=== PATIENT | male | born 1965 | race Two or more races ===

== ENCOUNTER 2018-12-01 21:54 | Emergency (ER) | payer MEDICAID, OTHER ==
[~2018-12-01] VITALS: Ht 175.3 cm; Wt 83.9 kg
[2018-12-01 22:02] VITALS: BP 114/60
== END 2018-12-01 22:32 | disposition left against medical advice (07) ==
LOC: EDBD 21:56 → ER 21:56
DX: S00.81XA Abrasion of other part of head, initial encounter (principal); W01.0XXA Fall on same level from slipping, tripping and stumbling without subsequent striking against object, initial encounter; Y93.89 Activity, other specified; Y92.89 Other specified places as the place of occurrence of the external cause; Y99.8 Other external cause status

== ENCOUNTER 2019-01-11 00:15 | Emergency (ER) | payer MEDICAID ==
[~2019-01-11] VITALS: Ht 172.7 cm; Wt 63.5 kg
--- NOTE | 2019-01-11 00:45 | NUR ---
PT BIBFAMILY COMPLAINING OF R SHOULDER PAIN FOLLOWING FALL AROUND 2100 LAST NIGHT. PT AXO4. RESPIRATIONS EVEN AND UNLABORED.
--- NOTE | 2019-01-11 01:36 | NUR ---
XRAY AT BEDSIDE.
[2019-01-11] MEDS ORDERED: HYDROCODONE/APAP 5/325MG 1 EACH TABLET ONE (02:14)
[2019-01-11] MEDS ORDERED: HYDROCODONE/APAP 5/325MG 1 EACH TABLET PO ONE (02:30)
--- NOTE | 2019-01-11 02:40 | NUR ---
Patient discharged to home in stable condition. Written and verbal after care instructions given. Patient verbalizes understanding of instruction.
[2019-01-11 02:44] VITALS: BP 125/77
== END 2019-01-11 02:46 | disposition home or self-care (01) ==
LOC: ER 00:18
DX: S42.214A Unspecified nondisplaced fracture of surgical neck of right humerus, initial encounter for closed fracture (principal); G40.909 Epilepsy, unspecified, not intractable, without status epilepticus; F10.10 Alcohol abuse, uncomplicated; F17.200 Nicotine dependence, unspecified, uncomplicated; Y90.9 Presence of alcohol in blood, level not specified; Z98.890 Other specified postprocedural states; Z88.5 Allergy status to narcotic agent; W01.0XXA Fall on same level from slipping, tripping and stumbling without subsequent striking against object, initial encounter; Y93.89 Activity, other specified; Y92.89 Other specified places as the place of occurrence of the external cause; Y99.8 Other external cause status
CPT/HCPCS: 73030-TC

== ENCOUNTER 2024-02-06 08:59 | Inpatient (IN) | payer MEDICARE, OTHER ==
[~2024-02-06] VITALS: Ht 172.7 cm; Wt 62.6 kg
[2024-02-06] MEDS ORDERED: OXYMETAZOLINE HCL NASAL SPRAY 30 ML BOTTLE NS ONE (09:56)
[2024-02-06] MEDS ORDERED: dexaMETHasone SOD PHOSPHATE 2 ML ONE (09:56)
[2024-02-06] MEDS ORDERED: LIDOCAINE 2%-EPI 1:100,000 30 ML VIAL ONE (09:56)
[2024-02-06] MEDS ORDERED: VANCOMYCIN 1 GM VIAL ONE (09:57)
[2024-02-06 14:00] VITALS: BP 114/69; TEMP 97.9; O2SAT 94
[2024-02-06] MEDS ORDERED: MAGNESIUM HYDROXIDE 30 ML UDC PO PRN (15:00)
[2024-02-06] MEDS ORDERED: MAG HYDROX/AL HYDROX/SIMETH 30 ML UDC PO PRN (15:00)
[2024-02-06] MEDS ORDERED: ONDANSETRON HCL/PF 4 MG/2 ML VIAL IV PRN ×2 (15:00)
[2024-02-06] MEDS ORDERED: ONDANSETRON HCL/PF 4 MG/2 ML VIAL IVP PRN (15:00)
[2024-02-06] MEDS ORDERED: ACETAMINOPHEN 325 MG TABLET PO PRN ×2 (15:00)
[2024-02-06] MEDS: IV NS 0.9% 1,000 ML IV PRN (15:08)
[2024-02-06] MEDS: HYDROCODONE/APAP 5/325MG TABLET PO PRN (15:29)
[2024-02-06] MEDS ORDERED: FURO-145 PO (15:39)
[2024-02-06] MEDS ORDERED: CARV6.25 PO (15:39)
[2024-02-06] MEDS ORDERED: VITA1TAB20 PO (15:39)
[2024-02-06] MEDS ORDERED: LEVE500T20 PO (15:39)
[2024-02-06] MEDS ORDERED: CHOL500052 PO (15:39)
[2024-02-06 16:00] VITALS: BP 110/70; TEMP 97.9; O2SAT 97
[2024-02-06] MEDS ORDERED: Z GUARD REMEDY 4 OZ OINT TP PRN (17:00)
[2024-02-06 20:00] VITALS: BP 108/69; TEMP 98.4; O2SAT 96
[2024-02-06] MEDS: TEMAZEPAM 15 MG CAPSULE PO PRN (21:14)
[2024-02-06] MEDS: VANCOMYCIN 1 GM in IV D5W 250ml IV SCH (22:01)
[2024-02-07 06:56] LABS: BASOPHILS % (AUTO) 0.1 % (0.0-2.0); HEMATOCRIT 39 % (39-51); HEMOGLOBIN 13.6 g/dL (13.5-17.5); LYMPHOCYTES # (AUTO) 0.6 K/uL (0.8-4.8); LYMPHOCYTES % (AUTO) 9.2 % (20.0-44.0); MEAN CORPUSCULAR HEMOGLOBIN 34 PG (26.0-33.0); MEAN CORPUSCULAR HGB CONC 35 g/dl (31.0-36.0); MEAN CORPUSCULAR VOLUME 98 fL (80-96); MONOCYTES # (AUTO) 0.3 K/uL (0.1-1.30); MONOCYTES % (AUTO) 4.7 % (2.0-12.0); NEUTROPHILS # (AUTO) 5.7 K/uL (1.8-8.9); PLATELET COUNT (AUTO) 60 K/uL (150-450); RED CELL DISTRIBUTION WIDTH 14.8 % (11.5-15.0); WHITE BLOOD COUNT (AUTO) 6.6 K/uL (4.3-11.0)
[2024-02-07 07:17] LABS: CALCIUM, SERUM 8.3 mg/dL (8.5-10.1); CREATININE 0.7 mg/dL (0.6-1.3); MAGNESIUM 2.1 mg/dL (1.8-2.4); PHOSPHORUS 3.8 mg/dL (2.5-4.9); POTASSIUM 4.2 mmol/L (3.5-5.1)
[2024-02-07 07:30] VITALS: BP 98/62; TEMP 97.9; O2SAT 94
[2024-02-07] MEDS: PANTOPRAZOLE 40 MG TABLET.DR PO SCH (07:45)
[2024-02-07 08:49] LABS: BASOPHILS % (MANUAL) 0 % (0.0-2.0); EOSINOPHILS % (MANUAL) 0 % (0-4); LYMPHOCYTES % (MANUAL) 12 % (16-48); MONOCYTES % (MANUAL) 5 % (0-11.0); NEUTROPHILS % (MANUAL) 83 (42-76); PLATELET ESTIMATE DECREASED
[2024-02-07] MEDS: LEVETIRACETAM (250 MG) 250 MG TABLET PO SCH (09:01)
[2024-02-07] MEDS: FUROSEMIDE 20 MG TABLET PO SCH (09:01)
[2024-02-07 09:03] VITALS: BP 100/62
[2024-02-07] MEDS: CARVEDILOL 6.25 MG TABLET PO SCH (09:03)
[2024-02-08] MEDS ORDERED: VITAMIN B COMP W-C 1 TAB TABLET PO SCH (09:00)
[2024-02-13] MEDS ORDERED: ERGOCALCIFEROL (VITAMIN D 2) 50,000 UNIT CAPSULE PO SCH (09:00)
== END 2024-02-07 13:26 | disposition home or self-care (01) | DRG 517 ==
LOC: DS 08:59 → MED 14:15
PROVIDERS: ADMIT Nurse Practitioner Acute Care; ATTEND Nurse Practitioner Acute Care
PROC: 0NSV04Z Reposition Left Mandible with Internal Fixation Device, Open Approach (ICD-10-PCS; principal; 2024-02-06)
PROC: 0NSR04Z Reposition Maxilla with Internal Fixation Device, Open Approach (ICD-10-PCS; 2024-02-06)
PROC: 0NBR0ZZ Excision of Maxilla, Open Approach (ICD-10-PCS; 2024-02-06)
PROC: 0NUR07Z Supplement Maxilla with Autologous Tissue Substitute, Open Approach (ICD-10-PCS; 2024-02-06)
PROC: 0WC40ZZ Extirpation of Matter from Upper Jaw, Open Approach (ICD-10-PCS; 2024-02-06)
PROC: 0NST04Z Reposition Right Mandible with Internal Fixation Device, Open Approach (ICD-10-PCS; 2024-02-06)
PROC: 0NBV0ZX Excision of Left Mandible, Open Approach, Diagnostic (ICD-10-PCS; 2024-02-06)
PROC: 0NBT0ZX Excision of Right Mandible, Open Approach, Diagnostic (ICD-10-PCS; 2024-02-06)
DX: S02.40DK Maxillary fracture, left side, subsequent encounter for fracture with nonunion (principal); M27.2 Inflammatory conditions of jaws; S02.40CK Maxillary fracture, right side, subsequent encounter for fracture with nonunion; S02.69XK Fracture of mandible of other specified site, subsequent encounter for fracture with nonunion; D16.4 Benign neoplasm of bones of skull and face; J32.0 Chronic maxillary sinusitis; X58.XXXD Exposure to other specified factors, subsequent encounter; M60.88 Other myositis, other site; T18.0XXA Foreign body in mouth, initial encounter; F17.200 Nicotine dependence, unspecified, uncomplicated
CPT/HCPCS: 36415; 80048-TC; 83735-TC; 84100-TC; 85025-TC; A4223; C1713; G0378; J0461; J0690; J1100; J2405; J2704; J3370; J3490; J7030; J7060

== ENCOUNTER 2024-06-02 09:21 | Outpatient (CLI) | payer MEDICARE, OTHER ==
[~2024-06-02 09:21] MED LIST: CARV6.25 PO; CHOL500052 PO; FURO-145 PO; FURO20TA4 PO; LEVE500T20 PO; RIFA550T PO; SPIR100T5 PO; THIA100T13 PO; VITA1TAB20 PO
[2024-06-02 11:11] LABS: BASOPHILS % (AUTO) 0.4 % (0.0-2.0); HEMATOCRIT 44 % (39-51); LYMPHOCYTES # (AUTO) 0.9 K/uL (0.8-4.8); LYMPHOCYTES % (AUTO) 23.4 % (20.0-44.0); MEAN CORPUSCULAR HEMOGLOBIN 34 PG (26.0-33.0); MEAN CORPUSCULAR HGB CONC 34 g/dl (31.0-36.0); MEAN CORPUSCULAR VOLUME 99 fL (80-96); MONOCYTES # (AUTO) 0.3 K/uL (0.1-1.30); MONOCYTES % (AUTO) 6.3 % (2.0-12.0); NEUTROPHILS # (AUTO) 2.8 K/uL (1.8-8.9); NEUTROPHILS % (AUTO) 68.9 % (43.0-81.0); PLATELET COUNT (AUTO) 59 K/uL (150-450); RED BLOOD CELL COUNT(AUTO) 4.43 MIL/uL (4.5-6.0); RED CELL DISTRIBUTION WIDTH 14.9 % (11.5-15.0)
[2024-06-02 11:12] LABS: CALCIUM, SERUM 9.3 mg/dL (8.5-10.1); CREATININE 0.9 mg/dL (0.6-1.3)
[2024-06-02 11:14] LABS: INR 1.18 (0.91-1.10); PARTIAL THROMBOPLASTIN TIME 28.7 SEC (24.3-34.3); PROTHROMBIN TIME 12.4 SECS (9.2-11.1)
[2024-06-02 12:48] LABS: BASOPHILS % (MANUAL) 0 % (0.0-2.0); EOSINOPHILS % (MANUAL) 2 % (0-4); LYMPHOCYTES % (MANUAL) 20 % (16-48); MONOCYTES % (MANUAL) 7 % (0-11.0); NEUTROPHILS % (MANUAL) 71 (42-76); PLATELET ESTIMATE DECREASED
== END 2024-06-02 23:59 | disposition home or self-care (01) ==
LOC: LAB 09:21
PROVIDERS: ATTEND Internal Medicine Interventional Cardiology
DX: Z01.818 Encounter for other preprocedural examination (principal); D68.9 Coagulation defect, unspecified; I70.0 Atherosclerosis of aorta; R06.00 Dyspnea, unspecified
CPT/HCPCS: 36415; 71046; 80048-TC; 85025-TC; 85730-TC

== ENCOUNTER 2024-06-11 09:15 | Inpatient (IN) | payer MEDICARE, OTHER ==
[~2024-06-11] VITALS: Ht 170.2 cm; Wt 59.9 kg
[2024-06-11] VITALS (7 sets, daily range): BP systolic 111–115; BP diastolic 67–94; TEMP 97.3–98; O2SAT 95–97
[2024-06-11] MEDS ORDERED: LIDOCAINE 2%-EPI 1:100,000 30 ML VIAL ONE (10:05)
[2024-06-11] MEDS ORDERED: VANCOMYCIN 1 GM VIAL ONE (10:06)
[2024-06-11] MEDS ORDERED: OXYMETAZOLINE HCL NASAL SPRAY 30 ML BOTTLE NS ONE (10:06)
[2024-06-11] MEDS ORDERED: dexaMETHasone SOD PHOSPHATE 2 ML ONE (10:06)
[2024-06-11] MEDS ORDERED: ACETAMINOPHEN 325 MG TABLET PO PRN (14:00)
[2024-06-11] MEDS ORDERED: ONDANSETRON HCL/PF 4 MG/2 ML VIAL IV PRN (14:00)
[2024-06-11] MEDS ORDERED: IV NS 0.9% 1,000 ML IV PRN (14:00)
[2024-06-11] MEDS ORDERED: HYDROMORPHONE 1 MG/1 ML DISP.SYRIN IV PRN (14:00)
[2024-06-11] MEDS: HYDROCODONE/APAP 5/325MG TABLET PO PRN (14:37)
[2024-06-11] MEDS ORDERED: ERGO500093 PO (15:48)
[2024-06-11] MEDS: VANCOMYCIN 1 GM in IV D5W 250ml IV SCH (22:03)
[2024-06-12 08:00] VITALS: BP 107/68; TEMP 97.9; O2SAT 92
== END 2024-06-12 18:19 | disposition home or self-care (01) | DRG 497 ==
LOC: DS 09:15 → MED 13:06
PROC: 0NPW04Z Removal of Internal Fixation Device from Facial Bone, Open Approach (ICD-10-PCS; principal; 2024-06-11)
PROC: 0NBV0ZX Excision of Left Mandible, Open Approach, Diagnostic (ICD-10-PCS; 2024-06-11)
PROC: 0NBR0ZX Excision of Maxilla, Open Approach, Diagnostic (ICD-10-PCS; 2024-06-11)
PROC: 0NBT0ZX Excision of Right Mandible, Open Approach, Diagnostic (ICD-10-PCS; 2024-06-11)
DX: T84.69XA Infection and inflammatory reaction due to internal fixation device of other site, initial encounter (principal); I25.10 Atherosclerotic heart disease of native coronary artery without angina pectoris; J44.9 Chronic obstructive pulmonary disease, unspecified; G40.909 Epilepsy, unspecified, not intractable, without status epilepticus; Z72.0 Tobacco use; M89.9 Disorder of bone, unspecified; Y83.8 Other surgical procedures as the cause of abnormal reaction of the patient, or of later complication, without mention of misadventure at the time of the procedure; Y92.009 Unspecified place in unspecified non-institutional (private) residence as the place of occurrence of the external cause
CPT/HCPCS: 87081-TC; A4223; G0378; J0330; J0360; J0690; J1100; J1200; J2310; J2704; J3370; J3490; J7030; J7060